=== PATIENT | female | born 1965 ===

== ENCOUNTER 2018-09-27 18:58 | Outpatient (REF) | payer OTHER, SELFPAY ==
[2018-09-27 21:15] LABS: Abs Immature Grans 0.01 k/cumm (0.0-0.09); Absolute Basophil Count 0.03 k/cumm (0.0-0.2); Absolute Eosinophil Count 0.19 k/cumm (0.0-0.7); Absolute Lymphocyte Count 1.92 k/cumm (1.2-3.4); Absolute Monocyte Count 0.41 k/cumm (0.11-0.7); Basophils % 0.5; Eosinophils % 3.4; HCT 40.5 % (36.0-46.0); HGB 13.8 g/dL (12.0-15.5); Immature Grans % 0.2; Lymphocytes % 34.5; Mean Corp. HGB Concentration 34.1 g/dL (32.0-36.0); Mean Corpuscular Hemoglobin 29.7 pg (27.0-33.0); Mean Corpuscular Volume 87.1 fL (80-95); Mean Platelet Volume 10.2 fL (8.0-11.0); Monocytes % 7.4; Platelet Count 263 x1000/uL (130-400); RBC 4.65 m/cumm (4.00-5.20); RBC Distribution Width 13.4 % (11.7-14.6); White Blood Cell Count 5.56 k/cumm (4.4-10.8)
[2018-09-27 21:24] LABS: BUN 14 mg/dL (7-18); CREATININE 0.86 mg/dL (0.55-1.02); Calcium 8.9 mg/dL (8.5-10.1); Chloride 102 mmol/L (98-107); Cholesterol 227 mg/dL (50-200); Glucose 113 mg/dL (70-100); HDL Cholesterol 36 mg/dL (40-60); LDL CHOLESTEROL 154 mg/dL (<100); Potassium 3.8 mmol/L (3.5-5.1); Sodium 139 mmol/L (136-145); Triglyceride 306 mg/dL (30-150)
== END 2018-09-27 19:18 ==
LOC: NCHCN 18:58
PROVIDERS: Family Medicine; PCP Nurse Practitioner Family; Visit Provider Nurse Practitioner Family
DX: Z00.00 Encounter for general adult medical examination without abnormal findings (principal); N92.4 Excessive bleeding in the premenopausal period
CPT/HCPCS: 80048; 80061; 83721; 85025

== ENCOUNTER 2019-08-16 18:52 | Outpatient (REF) | payer OTHER, SELFPAY ==
[2019-08-16 22:49] LABS: BUN 14 mg/dL (7-18); CREATININE 0.75 mg/dL (0.55-1.02); Chloride 103 mmol/L (98-107); Glucose 87 mg/dL (74-106); Potassium 3.6 mmol/L (3.5-5.1); Sodium 139 mmol/L (136-145)
== END 2019-08-16 19:12 ==
LOC: NCHCN 18:52
PROVIDERS: PCP Nurse Practitioner Family; Visit Provider Family Medicine
DX: R42 Dizziness and giddiness (principal); I10 Essential (primary) hypertension; H61.899 Other specified disorders of external ear, unspecified ear
CPT/HCPCS: 80048

== ENCOUNTER 2020-08-08 12:20 | Outpatient (REF) | payer SELFPAY ==
[2020-08-11 12:46] LABS: SARS-CoV-2 RNA Source Nasal/Nares
[2020-08-11 12:47] LABS: SARS-CoV-2 RNA Not Detected (NotDetected)
== END 2020-08-08 12:40 ==
LOC: NCHCN 12:20
PROVIDERS: PCP Nurse Practitioner Family; Visit Provider Nurse Practitioner Family
DX: Z20.828 Contact with and (suspected) exposure to other viral communicable diseases (principal)
CPT/HCPCS: U0003

== ENCOUNTER 2020-08-29 09:10 | Outpatient (REF) | payer OTHER, SELFPAY ==
[2020-08-31 09:15] LABS: COVID-19 RT-PCR UVMMC Result Negative (Negative)
== END 2020-08-29 09:30 ==
LOC: NCHCN 09:10
PROVIDERS: PCP Nurse Practitioner Family; Visit Provider Family Medicine
DX: J06.9 Acute upper respiratory infection, unspecified (principal)
CPT/HCPCS: U0003

== ENCOUNTER 2021-04-28 21:05 | Outpatient (REF) | payer OTHER, SELFPAY ==
[2021-04-28 22:53] LABS: Anion Gap 8.7 mmol/L (3-11); BUN 14 mg/dL (7-18); CO2 28.3 mmol/L (21.0-32.0); CREATININE 0.8 mg/dL (0.55-1.02); Calcium 9.1 mg/dL (8.5-10.1); Calculated LDL 168 mg/dL (<100); Chloride 100 mmol/L (98-107); Cholesterol 278 mg/dL (<200); Glucose 101 mg/dL (74-106); HDL Cholesterol 49 mg/dL (40-60); Potassium 3.8 mmol/L (3.5-5.1); Sodium 137 mmol/L (136-145); TSH 3.08 uIU/mL (0.36-3.74); Triglyceride 309 mg/dL (<150)
== END 2021-04-28 21:06 | disposition home or self-care (01) ==
LOC: NCHCN 21:05
PROVIDERS: PCP Nurse Practitioner Family; Visit Provider Family Medicine
DX: I10 Essential (primary) hypertension (principal); E78.5 Hyperlipidemia, unspecified; E66.3 Overweight
CPT/HCPCS: 80048; 80061; 84443

== ENCOUNTER 2022-05-06 15:24 | Outpatient (REF) | payer OTHER, SELFPAY ==
[2022-05-06 14:22] LABS: Hemoglobin A1C 5.8 % (<5.7)
[2022-05-06 14:25] LABS: Calculated LDL 167 mg/dL (<100); Cholesterol 252 mg/dL (<200); HDL Cholesterol 47 mg/dL (40-60); Triglyceride 191 mg/dL (<150)
== END 2022-05-06 15:25 | disposition home or self-care (01) ==
LOC: NCHCN 15:24
PROVIDERS: PCP Nurse Practitioner Family; Visit Provider Family Medicine
DX: Z13.220 Encounter for screening for lipoid disorders (principal); Z13.1 Encounter for screening for diabetes mellitus
CPT/HCPCS: 80061; 83036

== ENCOUNTER 2022-07-02 15:42 | Outpatient (REF) | payer OTHER, SELFPAY ==
[2022-07-02 16:57] LABS: ALT 38 U/L (14-59); Anion Gap 6.9 mmol/L (3-11); BUN 11 mg/dL (7-18); CO2 29.1 mmol/L (21.0-32.0); CREATININE 0.8 mg/dL (0.55-1.02); Calcium 9.2 mg/dL (8.5-10.1); Calculated LDL 100 mg/dL (<100); Chloride 102 mmol/L (98-107); Cholesterol 180 mg/dL (<200); Estimated GFR 86.42 (mL/min/1.73m2); Glucose 91 mg/dL (74-106); HDL Cholesterol 50 mg/dL (40-60); Potassium 4.2 mmol/L (3.5-5.1); Sodium 138 mmol/L (136-145); Triglyceride 153 mg/dL (<150)
== END 2022-07-02 15:43 | disposition home or self-care (01) ==
LOC: NCHCN 15:42
PROVIDERS: PCP Nurse Practitioner Family; Visit Provider Family Medicine
DX: I10 Essential (primary) hypertension (principal); E78.5 Hyperlipidemia, unspecified
CPT/HCPCS: 80048; 80061; 84460

== ENCOUNTER 2024-08-27 15:59 | Outpatient (REF) | payer BC, SELFPAY ==
[2024-08-27 22:01] LABS: Anion Gap 8.8 mmol/L (3-11); BUN 16 mg/dL (7-18); CO2 28.2 mmol/L (21.0-32.0); CREATININE 0.8 mg/dL (0.55-1.02); Calcium 9.4 mg/dL (8.5-10.1); Chloride 103 mmol/L (98-107); Estimated GFR 84.82 (mL/min/1.73m2); Glucose 112 mg/dL (74-106); Potassium 3.6 mmol/L (3.5-5.1); Sodium 140 mmol/L (136-145)
== END 2024-08-27 16:00 | disposition home or self-care (01) ==
LOC: NCHCN 15:59
PROVIDERS: PCP Nurse Practitioner Family; Visit Provider Family Medicine
DX: I10 Essential (primary) hypertension (principal)
CPT/HCPCS: 80048

== ENCOUNTER 2025-05-15 20:25 | Outpatient (CLI) | payer OTHER, SELFPAY ==
--- NOTE | 2025-05-15 13:57 | DI.RAD_ITS ---
Exam(s) XR KNEE LT 3V AP,LAT,SIOBHAN EXAM: XR KNEE LT 3V AP,LAT,SIOBHAN CLINICAL HISTORY: PAIN, JOINT KNEE LEFT [id number]. TECHNIQUE: 2D digital imaging was performed. Three views. COMPARISON: No exams were available for comparison FINDINGS: BONES: No acute fracture is present. No bony destructive lesion is seen. Irregularity at the articular aspect of the patella. JOINTS: There is mild narrowing of the medial femoral tibial joint space and mild periarticular spurring. Spurring is also noted at the tibial spines and femoral intercondylar notch. There is spurring at the articular aspect of the patella.. No joint effusion is seen. SOFT TISSUE: Normal. IMPRESSION: Mild 2 moderate degenerative changes of the patellofemoral joint and medial femoral tibial joint. DATA REPOSITORY: RADIATION DOSE DELIVERED:
== END 2025-05-15 20:45 ==
LOC: DI 20:25
PROVIDERS: PCP Nurse Practitioner Family; Visit Provider Family Medicine
DX: M17.12 Unilateral primary osteoarthritis, left knee (principal)
CPT/HCPCS: 73562

== ENCOUNTER 2025-08-12 11:06 | Outpatient (CLI) | payer OTHER, SELFPAY ==
--- NOTE | 2025-08-12 08:45 | DI.RAD_ITS ---
Exam(s) XR KNEE LT 1V EXAM: XR KNEE LT 1V CLINICAL HISTORY: LEFT KNEE PAIN. TECHNIQUE: 2D digital imaging was performed. COMPARISON: Prior left knee x-rays of 05/15/2025. FINDINGS: Single merchant's view: No evidence of patellar fracture. However, there are moderate degenerative changes in the medial compartment of the patellofemoral compartment. There is also osteophytic involvement of the outer aspect of medial femoral condyle. IMPRESSION: Moderate degenerative changes in the medial aspect of the patellofemoral compartment of the left knee. DATA REPOSITORY: RADIATION DOSE DELIVERED:
== END 2025-08-12 11:07 | disposition home or self-care (01) ==
LOC: DIORS 11:06
PROVIDERS: PCP Nurse Practitioner Family; Visit Provider Student in an Organized Health Care Education/Training Program
DX: M25.562 Pain in left knee (principal); M22.2X2 Patellofemoral disorders, left knee
CPT/HCPCS: 73560